=== PATIENT | female | born 1975 | race American Indian/Alaskan Native ===

== ENCOUNTER 2021-02-12 04:03 | Emergency (ER) | payer SELFPAY ==
[2021-02-12] MEDS ORDERED: ACETAMINOPHEN 325 MG TAB PO ONE (06:47)
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
[2021-02-12 09:52] VITALS: BP 160/97
== END 2021-02-12 09:52 | disposition home or self-care (01) ==
LOC: ED 04:03
DX: S16.1XXA Strain of muscle, fascia and tendon at neck level, initial encounter (principal); S29.012A Strain of muscle and tendon of back wall of thorax, initial encounter; M79.18 Myalgia, other site; I10 Essential (primary) hypertension; Z86.69 Personal history of other diseases of the nervous system and sense organs; Z88.2 Allergy status to sulfonamides; Z88.6 Allergy status to analgesic agent; Z79.899 Other long term (current) drug therapy; V89.2XXA Person injured in unspecified motor-vehicle accident, traffic, initial encounter; Y93.89 Activity, other specified; Y92.488 Other paved roadways as the place of occurrence of the external cause; Y99.8 Other external cause status
CPT/HCPCS: 99282